=== PATIENT | female | born 1985 | race Caucasian/White ===

== ENCOUNTER 2016-07-29 14:44 | Inpatient (IN) | payer OTHER ==
[~2016-07-29] VITALS: Ht 170.2 cm; Wt 102.3 kg
[~2016-07-29 14:44] MED LIST: MOTRIN 600600 MG/TAB PO; PERCOCET 325 MG1 TA2 PO
[2016-08-27] VITALS (34 sets, daily range): BP systolic 105–1248; BP diastolic 56–92; PULSE 69–118; TEMP 97.5–97.9
[2016-08-27] MEDS ORDERED: PRENATAL1 TA7 PO (07:47)
[2016-08-27 08:35] LABS: BASO % 0.2 % (0.0-2.0); EOS # 0.1 (0.0-0.7); EOS % 0.8 % (0-4.0); GRAN # 8.2 (1.4-6.5); GRAN % 74.2 % (42.2-75.2); HEMATOCRIT 38.5 % (37.0-47.0); HEMOGLOBIN 13.1 g/dl (12.5-16.0); LYMPH % 18.4 % (20.0-51.0); MEAN CELL VOLUME 87 fl (80.0-100.0); MEAN CORPUSCULAR HEMOGLOBIN 30 pg (27.0-31.0); MEAN CORPUSCULAR HGB CONC 34 g/dl (33.0-37.0); MEAN PLATELET VOLUME 10.2 fl (7.4-10.4); MONO # 0.7 (0.1-0.6); MONO % 5.9 % (1.7-9.3); PLATELET COUNT 209 K/mm3 (130-400); RED BLOOD COUNT 4.41 M/mm3 (4.10-5.30); REDCELL DISTRIBUTION WIDTH-CV 14.5 % (11.5-14.5)
[2016-08-28 07:30] VITALS: BP 110/62; PULSE 83; TEMP 97.9
[2016-08-28] MEDS ORDERED: MOTRIN 800800 MG/TAB PO (08:31)
[2016-08-28] MEDS ORDERED: PERCOCET 325 MG1 TA2 PO (08:31)
[2016-08-28 12:48] VITALS: BP 117/74; PULSE 84; TEMP 97.2
== END 2016-08-28 15:00 | disposition home or self-care (01) | DRG 775 ==
LOC: LDR 08-27 07:04 → OB 08-27 07:04 → LDR 08-27 07:06 → OB 08-27 14:54 → EDSTATUS 09-01 07:05 → LDRO 09-01 14:43
PROVIDERS: Obstetrics & Gynecology
PROC: 10E0XZZ Delivery of Products of Conception, External Approach (ICD-10-PCS; principal; 2016-08-27)
PROC: 3E033VJ Introduction of Other Hormone into Peripheral Vein, Percutaneous Approach (ICD-10-PCS; 2016-08-27)
DX: O36.0130 Maternal care for anti-D [Rh] antibodies, third trimester, not applicable or unspecified (principal); O69.81X0 Labor and delivery complicated by cord around neck, without compression, not applicable or unspecified; Z3A.39 39 weeks gestation of pregnancy; Z37.0 Single live birth
CPT/HCPCS: J2590; J2791; J7120